=== PATIENT | female | born 1970 | race Caucasian/White ===

== ENCOUNTER 2016-12-18 14:20 | Emergency (ER) | payer BC ==
--- NOTE | 2016-12-18 15:35 | RAD ---
RIGHT ANKLE 3 VIEWS: Date: 12/18/16 HISTORY: Injury. Horse stepped on foot. COMPARISON: None. FINDINGS: Joint spaces preserved. No fracture. No cortical irregularity. IMPRESSION: No fracture. POS: [facility]
--- NOTE | 2016-12-18 15:47 | RAD ---
EXAM: RIGHT FOOT THREE VIEWS 12/18/16 HISTORY: Horse stepped on foot. Pain. COMPARISON: None. FINDINGS: The joint space is preserved. Lisfranc alignment is maintained. No obvious fracture. There is a poss ible accessory ossicle on the medial hindfoot with irregularities likely representing a remote injur y. However, there does appear to be a small focus of soft tissue swelling. Correlate clinically for point tenderness. IMPRESSION: Probable remote injury. Nevertheless, clinical correlation is recommended. If there is point tendern ess, immobilization and followup imaging can be performed in 7-10 days. POS: [facility]
== END 2016-12-18 15:45 | disposition home or self-care (01) ==
LOC: NAV ERS 14:20
DX: S90.31XA Contusion of right foot, initial encounter (principal); W55.19XA Other contact with horse, initial encounter